=== PATIENT | male | born 1990 | race Caucasian/White ===

== ENCOUNTER 2023-12-07 09:51 | Outpatient (CLI) | payer BC, SELFPAY | END 2023-12-07 09:52 | disposition home or self-care (01) | PROVIDERS: Visit Provider Family Medicine | DX: K62.5 Hemorrhage of anus and rectum (principal) | CPT/HCPCS: 80048; 80076 ==

== ENCOUNTER 2024-12-18 09:55 | Outpatient (CLI) | payer BC, SELFPAY | END 2024-12-18 09:56 | disposition home or self-care (01) | LOC: LKVREF 09:56 | PROVIDERS: Visit Provider Family Medicine | DX: R94.5 Abnormal results of liver function studies (principal) | CPT/HCPCS: 80076 ==